=== PATIENT | male | born 1935 | race Caucasian/White ===

== ENCOUNTER 2017-04-12 17:59 | Inpatient (IN) | payer MEDICARE, BC, OTHER ==
[~2017-04-12] VITALS: Ht 177.8 cm; Wt 121.6 kg
[~2017-04-12 17:59] MED LIST: ALLEGRA ALLERG180 MG PO; ASPIR 8181 MG PO; BENTYL 10 MG CA10 M1 PO; BRILINTA90 MG PO; DICLOFENAC SODI75 MG PO; LANSOPRAZOLE30 MG PO; NITROGLYCERIN0.4 MG SUBLING; NORCO 5-325 TA1 EACH PO; PREVACID30 MG PO; PROVENTIL HFA6.7 G1 INH; SYMBICORT160 MCG/4. INH; TOPAMAX 25 MG T25 M1 PO; TOPROL XL25 MG PO; ZOCOR20 MG PO
[2017-04-12 19:50] LABS: ABSOLUTE BASOPHILS 0.1 thou/uL (0.0-0.2); ABSOLUTE LYMPHOCYTES 1.5 thou/uL (0.8-5.3); ABSOLUTE MONOCYTES 0.9 thou/uL (0.0-1.2); ABSOLUTE NEUTROPHILS 8.8 thou/uL (1.6-8.1); BASOPHILS 0.6 %; EOSINOPHILS 0.3 %; HEMATOCRIT 40.6 % (42.0-52.0); HEMOGLOBIN 13.3 gm/dL (14.0-18.0); LYMPHOCYTES 13.6 %; MCH 29.1 pg (26.0-34.0); MCHC 32.8 g/dL (28.0-37.0); MCV 88.8 fL (80.0-100.0); MONOCYTES 7.6 %; MPV 9.3 fl. (7.2-11.1); NUCLEATED RBCS 0 /100WBC; PLATELET COUNT* 186 thou/uL (150-400); POLYS 77.9 %; RBC 4.57 mil/uL (4.50-6.00); RDW-CV 14.9 % (10.5-14.5); WBC 11.3 thou/uL (4.0-11.0)
[2017-04-12 19:57] LABS: CREATININE 1.3 mg/dL (0.6-1.3); POTASSIUM 3.8 mmol/L (3.5-5.1)
[2017-04-12 20:00] VITALS: BP 135/83
[2017-04-12 20:01] LABS: TOTAL BILIRUBIN 0.3 mg/dL (<0.1-1.0); TOTAL PROTEIN 5.7 g/dL (6.4-8.2)
--- NOTE | 2017-04-12 21:37 | NUR ---
PATIENT ARRIVED TO UNIT AT SHIFT CHANGE 1919. PATIENT STABLE, ORIENT X4, BP 130/83(102) AFEBRILE. HAS INTERMITTENT PAIN OF [address] REHMAN IN ROOM SPEAKING WITH PT AND FAMILY. GI AND CARDIOLOGY HAVE BEEN CONSULTED. WILL CONTINUE TO MONITOR.
[2017-04-12 22:00] VITALS: BP 79/61
[2017-04-13] VITALS (9 sets, daily range): BP systolic 103–147; BP diastolic 54–88
[2017-04-13 03:12] LABS: ABSOLUTE BASOPHILS 0.1 thou/uL (0.0-0.2); ABSOLUTE LYMPHOCYTES 1.8 thou/uL (0.8-5.3); ABSOLUTE NEUTROPHILS 6.3 thou/uL (1.6-8.1); BASOPHILS 0.7 %; EOSINOPHILS 0.4 %; HEMATOCRIT 35.8 % (42.0-52.0); HEMOGLOBIN 11.7 gm/dL (14.0-18.0); LYMPHOCYTES 19.5 %; MCH 29.4 pg (26.0-34.0); MCHC 32.8 g/dL (28.0-37.0); MCV 89.6 fL (80.0-100.0); MONOCYTES 10.4 %; MPV 9.8 fl. (7.2-11.1); NUCLEATED RBCS 0 /100WBC; PLATELET COUNT* 160 thou/uL (150-400); RBC 3.99 mil/uL (4.50-6.00); WBC 9.2 thou/uL (4.0-11.0)
[2017-04-13 03:14] LABS: CALCIUM 7.9 mg/dL (8.5-10.1); CREATININE 1.2 mg/dL (0.6-1.3); POTASSIUM 4.3 mmol/L (3.5-5.1)
--- NOTE | 2017-04-13 08:07 | NUR ---
PATIENT PROGRESSING TOWARDS GOALS. HAS NO CURRENT CONCERNS AT THIS TIME. PT STATES HE FEELS GREAT NO LONGER HAS LOWER ABD PAIN. PT HAD LIQUID BM OF 300ML LIQUID BRIGHT RED BLOOD. DENIES HEADACHE, PAIN, N/V. HGB OF 10.7. GI AND CARDIOLOGY CONSULTED. PT IS HEMODYNAMICALLY TABLE NO ACUTE CHANGES OVER NIGHT. WILL CONTINUE TO MONITOR CLOSELY.
--- NOTE | 2017-04-13 10:47 | NUR ---
RECEIVED REPORT FROM UMESH OSPINA. ASSUMED CARE OF PT AT 1030. PT HAD BLODDY STOOL RIGHT NOW. HUMBERTO RED BLOOD. VITALS STABLE. WILL CONTINUE TO MONITOR.
--- NOTE | 2017-04-13 10:49 | NUR ---
CHART REVIEWED, SPOKE WITH PATIENT. PT LIVES WITH HIS , STATES HAS BEEN ACTIVE AND INDEP AT HOME. PT ADMITTED WITH GI BLEED, STATES ALTHO THIS IS NOT A NEW ISSUE FOR HIM, HE IS ANXIOUS TO FIND OUT WHAT THE CAUSE IS. EXPLAINED ROLE OF CASE MGT, WILL CONTINUE TO FOLLOW.
[2017-04-13 16:18] LABS: ABSOLUTE BASOPHILS 0.1 thou/uL (0.0-0.2); ABSOLUTE LYMPHOCYTES 1.6 thou/uL (0.8-5.3); ABSOLUTE MONOCYTES 1.2 thou/uL (0.0-1.2); ABSOLUTE NEUTROPHILS 11.5 thou/uL (1.6-8.1); BASOPHILS 0.6 %; EOSINOPHILS 0.1 %; HEMATOCRIT 31.3 % (42.0-52.0); HEMOGLOBIN 10.1 gm/dL (14.0-18.0); LYMPHOCYTES 11.1 %; MCH 28.8 pg (26.0-34.0); MCHC 32.3 g/dL (28.0-37.0); MCV 89.1 fL (80.0-100.0); MPV 9.5 fl. (7.2-11.1); NUCLEATED RBCS 0 /100WBC; PLATELET COUNT* 195 thou/uL (150-400); POLYS 80.2 %; RBC 3.52 mil/uL (4.50-6.00); RDW-CV 14.9 % (10.5-14.5); WBC 14.3 thou/uL (4.0-11.0)
--- NOTE | 2017-04-13 19:08 | NUR ---
TALKED WITH DR SILVERIO READ RESULTS OF GI BLEED STUDY AND CURRENT HGB.
--- NOTE | 2017-04-13 19:30 | NUR ---
ASSUMED CARE AT 1930, ASSESMENT CHARTED. PATIENT ALERT/ORIENTED X4, RESTING IN BED. PATIENT TURNING SELF IN BED FREQUENTLY. DENIES PAIN, NAUSEA, OR NEEDS. GIVEN DINNER TRAY, TOLERATING CLEAR LIQUID DIET WELL. VOIDING PER URINAL. SCD'S INTACT. BED ALARM ON. CALL LIGHT WITHIN REACH, ENCOURAGED TO CALL FOR NEEDS.
[2017-04-13 22:10] LABS: HEMATOCRIT 26.8 % (42.0-52.0); HEMOGLOBIN 8.8 gm/dL (14.0-18.0)
[2017-04-13] MEDS ORDERED: BRILINTA90 MG PO (22:28)
[2017-04-13] MEDS ORDERED: EFFIENT10 MG PO (22:28)
[2017-04-14] VITALS (17 sets, daily range): BP systolic 91–130; BP diastolic 37–89
--- NOTE | 2017-04-14 00:20 | NUR ---
0020: PATIENT PLACED ON BEDPAN, 250ML RED BLOODY LIQUID STOOL NOTED OUT. CONTINUES TO DENY PAIN OR NAUSEA. DR. SILVERIO PAGED X2 AT THAT TIME WITH RETURNED CALL AT 0200. ORDERS RECEIVED TO TYPE & SCREEN, REPEAT RBC TAGGED SCAN STAT, AND TO CHECK AN H&H. PATIENT UPDATED. 0245: JULISSA AT BEDSIDE, PATIENT TAKEN TO HI AT THIS TIME.
[2017-04-14 02:45] LABS: HEMATOCRIT 25.5 % (42.0-52.0); HEMOGLOBIN 8.3 gm/dL (14.0-18.0)
--- NOTE | 2017-04-14 02:54 | NUR ---
PATIENT IN NM FOR RBC TAGGED SCAN AT THIS TIME. STAFF AT SIDE. WILL MONITOR.
--- NOTE | 2017-04-14 03:15 | NUR ---
PATIENT RETURNED FROM CO, INCONTINENT OF SMALL RED BLOODY STOOL. EMILIANA-CARE GIVEN. HGB RESULTED AT 8.3. PATIENT UPDATED. AWAITING RESULTS OF CO TEST. BED ALARM ON. WILL MONITOR.
--- NOTE | 2017-04-14 07:30 | NUR ---
0730 ASSUMED CARE OF PT. PLEASE SEE DOCUMENTED ASSESSMENT. PT IS AXOX4. 02 AT 2L PER NC. LAST HGB AT 8.3. DENIES PAIN. AWAITING NUCLEAR MED RESULTS. GOALS THIS SHIFT ARE: MAINTAIN HEMODYNAMIC STABILITY, MONITOR BLEEDING, TRANSFUSE IF NECESSARY, AND POSSIBLY TX OUT TO TELE.
--- NOTE | 2017-04-14 07:53 | NUR ---
PATIENT RESTING IN BED. REPORT GIVEN TO ONCOMING NURSE. WILL MONITOR.
--- NOTE | 2017-04-14 10:00 | NUR ---
DR. SILVERIO HERE ON THE UNIT. UPDATED ON PT CARE. NEW ORDERS RCV'D. INFORMED DR. SILVERIO OF PT'S 300 ML REDDISH BROWN LIQUID STOOL. AWAITING LAB FOR 1000 H/H.
[2017-04-14 11:10] LABS: HEMATOCRIT 23.6 % (42.0-52.0); HEMOGLOBIN 7.9 gm/dL (14.0-18.0)
--- NOTE | 2017-04-14 11:32 | NUR ---
UPDATED DR. SILVERIO VIA TELEPHONE. NEW ORDERS RCV'D. PT TO START BOWEL PREP FOR 0930 COLONOSCOPY TOMORROW 04/15/17.
--- NOTE | 2017-04-14 13:28 | CON ---
[address] [address] CONSULTATION Name: MELQUIADES SERVIN Room: [address] IN M.R.#: [id number] Admission: 04/12/17 Attend Phys: Jhonny Manzo MD Discharge: Date of : 37 Report #: [id number] THIS REPORT FOR: //name// CC: Jhonny Ivey DATE OF SERVICE: 04/13/2017 HISTORY OF PRESENT ILLNESS: The patient is an 81-year-old white male who I was asked to see in the hospital today because of his history of coronary artery disease. The patient presented last July with chest pain. He had a stress test that was abnormal. He saw my partner, Dr. Frias. He had a heart catheterization here at [facility] by his radial artery. He was found to have 2 sequential stenoses in the right coronary artery. He then had a long drug-eluting stent placed in the right coronary artery. He had normal left ventricular function. He was discharged on Brilinta. He could not tolerate her Brilinta, so was actually switched to Effient. He returned to see Dr. Frias in the Cardiology clinic on 03/29/2017. The patient is not very active because of his age and large size. He is 5 feet 9 inches and weighs 266 pounds. He has had only rare episodes of chest pain. He does get short of breath with exertion. He has had no palpitation or syncope. He has previous history of GI bleeding; he has had a previous upper GI as well as a colonoscopy that showed colon polyps. He was doing well until last couple of days he has had bright red blood per rectum. He finally went to the Emergency Room in ____. He was noted to be anemic and given a transfusion. He was then transferred to [facility] yesterday. He is now undergoing a GI evaluation. He denied any vomiting, abdominal pain. PAST MEDICAL HISTORY: Otherwise significant for knee surgery, back surgery, hypertension, hyperlipidemia. CURRENT MEDICATIONS: Include albuterol inhaler for asthma, Prevacid, metoprolol, Effient, simvastatin, Topamax for previous TIA and aspirin a day. ALLERGIES: He has no known drug allergies. FAMILY HISTORY: Negative for heart disease. SOCIAL HISTORY: He is . He and his live in [place], [place]. 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 Quit smoking years ago. No alcohol abuse. REVIEW OF SYSTEMS: He has had no history of liver disease. No cancer. No psychiatric illness[place] [address] CONSULTATION Name: MELQUIADES SERVIN Room: [address] IN M.R.#: [id number] Admission: 04/12/17 Attend Phys: Jhonny Manzo MD Discharge: Date of : 37 Report #: [id number] PHYSICAL EXAMINATION: GENERAL: Revealed an elderly male, lying in bed. VITAL SIGNS: Blood pressure 130/80, pulse is 90, he is afebrile. HEENT: He is anicteric. Conjunctivae pink. Mucous members moist. NECK: Veins nondistended. No carotid bruits. Neck is supple. CHEST: Clear to auscultation. CARDIOVASCULAR: Regular rate and rhythm. ABDOMEN: Obese, soft, nontender. EXTREMITIES: Had no edema. Dorsalis pedis pulse 1+ bilaterally. SKIN: Warm and dry. NEUROLOGIC: Nonfocal. LYMPH: No adenopathy. MUSCULOSKELETAL: No joint effusion. On the monitor, he appears to be in a sinus rhythm, occasional PVC. His workup so far, he had lab work here, sodium 149, creatinine 1.2, glucose 121. Cholesterol 131, triglyceride 105, HDL 43, LDL 67. White blood cell count 9.2, hemoglobin 11.7. IMPRESSION AND RECOMMENDATIONS: 1. Lower gastrointestinal bleed. At this time, I would stop the aspirin and Effient. The patient is stable from cardiac standpoint for GI workup. 2. Coronary artery stenting. The patient had a long drug-eluting stent placed in the right coronary artery in 07/2016. Since it has now been more than 6 months following placement of drug-eluting stent, I think it is reasonable to discontinue the Effient. Since his bleeding, I would stop the aspirin at this time. However, as soon as it is felt to be safe from a GI standpoint, I would resume aspirin 81 mg a day. 3. Hypertension. The patient has been on a beta justin. 4. Hyperlipidemia. The patient is on a statin drug. 5. Asthma. The patient followed by the Pulmonary Service. <ELECTRONICALLY SIGNED> By: Miguel Miguel MD, FACC 04/14/17 1328 [id number] 2023David José Miguel MD, FACC /nt
[2017-04-14 17:26] LABS: HEMATOCRIT 24.6 % (42.0-52.0); HEMOGLOBIN 8.1 gm/dL (14.0-18.0)
--- NOTE | 2017-04-14 18:07 | NUR ---
OUTCOME SUMMARY: PROGRESSING TOWARDS GOALS. TO HAVE COLONOSCOPY AT 0930 IN AM. TOLERATING GOLYTELY BOWEL PREP FAIR, TREATED W/PRN ZOFRAN FOR INTERMITTENT NAUSEA W/PARTIAL RELIEF. MULTIPLE STOOLS TODAY, LATEST STOOL DARK BROWN. HGB TRENDING UPWARD. ROOM AIR W/SATS WNL. NPO AFTER MIDNIGHT. NUC MED RE-SCAN SHOWED NO ACTIVE BLEEDING, POSSIBLE COLITIS. PT STARTED ON CIPRO/FLAGYL PO. OVERALL PROGNOSIS: GOOD.
[2017-04-14 22:18] LABS: HEMATOCRIT 23.8 % (42.0-52.0); HEMOGLOBIN 7.9 gm/dL (14.0-18.0)
[2017-04-15] VITALS (15 sets, daily range): BP systolic 89–138; BP diastolic 41–67
[2017-04-15 04:41] LABS: HEMATOCRIT 20.8 % (42.0-52.0)
--- NOTE | 2017-04-15 05:32 | NUR ---
PT. TO HAVE COLONOSCOPY TODAY. HGB 7.0. PT. UP TO BEDSIDE COMMODE X4, LIQUID BM'S. WILL CONTINUE TO MONITOR.
--- NOTE | 2017-04-15 09:29 | NUR ---
PATIENT CARE ASSUMED AT 0700. PATIENT AOX4. PATIENT BOWEL PREP COMPLETED ON NOC. PER STEAMBOAT INSPECTOR AND PATIENT, BOWELS CLEAR AFTER MULTIPLE TRANSFERS TO [place] [facility] [place]. MORNING HGB 7.0. ORDERS TO TRANSFUSE IS HGB BELOW 7.5. ONE UNIT TRANFUSING NOW, ONE MORE AFTER THAT. PATIENT TO GO TO COLONOSCOPY THIS AM. NPO SINCE MIDNIGHT WITH EXCEPTION OF NECESSARY MEDS. PATIENT'S AT BEDSIDE. UPDATED ON PLAN OF CARE. DENY FURTHER NEEDS AT THIS TIME.
--- NOTE | 2017-04-15 10:03 | NUR ---
PATIENT LEFT THE UNIT FOR COLONOSCOPY AT 1000.
--- NOTE | 2017-04-15 10:41 | NUR ---
PATIENT RETURNED FROM COLONOSCOPY AT 1035. EGD WAS ALSO COMPLETED AT THIS TIME. PATIENT HAS DIVETICULOSIS, AND SMALL HIATAL HERNIA, BUT NO FURTHER FINDINGS. BLOOD STILL INFUSING AT THIS TIME, ALMOST COMPLETELY INFUSED. OKAY TO DOWNGRADE TO TELEMETRY STATUS AND EAT PER DR SILVERIO.
[2017-04-15 12:07] LABS: ALBUMIN 2.5 g/dL (3.4-5.0); CALCIUM 7.4 mg/dL (8.5-10.1); CREATININE 1.1 mg/dL (0.6-1.3); POTASSIUM 3.1 mmol/L (3.5-5.1); TOTAL BILIRUBIN 0.1 mg/dL (<0.1-1.0); TOTAL PROTEIN 4.3 g/dL (6.4-8.2)
[2017-04-15 14:05] LABS: URINE BILIRUBIN NEGATIVE (Negative); URINE BLOOD NEGATIVE (Negative); URINE CLARITY CLEAR; URINE COLOR YELLOW; URINE GLUCOSE-RANDOM NEGATIVE (Negative); URINE KETONES NEGATIVE (Negative); URINE LEUKOCYTES NEGATIVE (Negative); URINE NITRITE NEGATIVE (Negative); URINE PROTEIN NEGATIVE (Negative); URINE SPECIFIC GRAVITY >= 1.030 (1.005-1.030); URINE UROBILINOGEN 0.2 E.U./dl (0.2-1.0)
[2017-04-15 16:21] LABS: HEMOGLOBIN 8.6 gm/dL (14.0-18.0)
[2017-04-15 16:33] LABS: INR 1.1; PROTIME 10.8 Seconds (9.20-11.50)
--- NOTE | 2017-04-15 17:27 | NUR ---
PATIENT PROGRESSING TOWARDS GOALS. HAS DENIED FURTHER NEEDS SINCE RETURNING FROM COLONOSCOPY THIS AM. POTASSIUM REPLACED AFTER AFTERNOON RECHECK. LABS TO BE COMPLETED IN AM. HEMATOLOGY CONSULTED CALLED AND DR CARTWRIGHT CALLED AND ORDERED NEW LABS TO ASSESS FOR POSSIBLE BLEEDING DISORDER PER DR GARCIA. PATIENT NOW ON REGULAR DIET, TOLERATING WELL. 2 UNITS PRBCS INFUSED THIS AM, 8.6 HGB ON REDRAW. DOWNGRADED TO TELEMETRY STATUS.
[2017-04-16] VITALS: BP 102/42
[2017-04-16 04:00] VITALS: BP 103/45
[2017-04-16 05:21] LABS: HEMATOCRIT 23.4 % (42.0-52.0); MCH 30.6 pg (26.0-34.0); MCHC 34.4 g/dL (28.0-37.0); MPV 8.8 fl. (7.2-11.1); RBC 2.62 mil/uL (4.50-6.00); RDW-CV 14.6 % (10.5-14.5); WBC 7.8 thou/uL (4.0-11.0)
[2017-04-16 05:39] LABS: CALCIUM 7.6 mg/dL (8.5-10.1); CREATININE 1.2 mg/dL (0.6-1.3); MAGNESIUM 1.8 mg/dL (1.8-2.4)
--- NOTE | 2017-04-16 06:30 | NUR ---
PROGRESSING TOWARDS GOALS, TYLENOL X1 AND ICE PACKS WITH HAND ELEVATION HELPFUL FOR PAIN MANAGEMENT TO RIGHT HAND PER PT VERBALIZED, NSR TRACING METHODS ENGINEER, RA, DENIES SOA, AWAKE, ALERT AND CONVERSATIVE THIS AM, USING URINAL TO VOID, NO S/S BLEEDING NOTED.
[2017-04-16 08:00] VITALS: BP 107/45
--- NOTE | 2017-04-16 08:45 | NUR ---
ASSUMED CARE OF PATIENT AFTER RECEIVING BEDSIDE REPORT. ASSESSMENT COMPLETED, VSS. PATIENT DENIES COMPLAINTS AND CONCERNS. PATIENT REPORTS IMPROVEMENT IN ROM AND PAIN IN LEFT HAND. PATIENT DENIES OTHER PAIN. PATIENT HOPEFUL TO DISCHARGE HOME TODAY. BISQUE BRUSHER IN PLACE, SINUS RHYTHM NOTED. CALL LIGHT WITHIN REACH, USE REINFORCED. WILL CONTINUE TO MONITOR.
[2017-04-16] MEDS ORDERED: ASPIR 8181 MG PO (12:20)
[2017-04-16] MEDS ORDERED: CIPRO500 MG PO (12:33)
[2017-04-16] MEDS ORDERED: FLAGYL500 MG PO (12:36)
[2017-04-16 12:39] VITALS: BP 107/45
[2017-04-16 18:10] LABS: IgA 77 mg/dL (61-437); IgG 329 mg/dL (700-1600)
[2017-04-16 19:11] LABS: IgM 15 mg/dL (15-143)
[2017-04-18 18:11] LABS: ANA INTERPRETATION Negative (())
--- NOTE | 2017-05-10 14:50 | CON ---
[address] [address] CONSULTATION Name: MELQUIADES SERVIN Room: [address] IN M.R.#: [id number] Admission: 04/12/17 Attend Phys: Jhonny Manzo MD Discharge: 04/16/17 Date of : 37 Report #: [id number] THIS REPORT FOR: //name// CC: Jhonny Ivey DATE OF SERVICE: 04/13/2017 ADDENDUM TO CONSULTATION REASON FOR CONSULTATION: GI bleed. HISTORY OF PRESENT ILLNESS: This is an 81-year-old male with history of recurrent GI bleeds. He believes he had a negative upper endoscopy in the last 6 months and a colonoscopy about 3 years ago. He has had 3 significant GI bleeds in the past without any obvious source of GI bleeding. The patient currently denies any abdominal pain. Complains of mild nausea and denies any vomiting, diarrhea or constipation. He has two bloody stools, which were small today. PAST MEDICAL HISTORY: Significant for history of coronary artery disease, history of chronic anticoagulation therapy, Effient, GERD, chronic pain medication, asthma and hyperlipidemia. ALLERGIES: Please refer to hospital MAR. MEDICATIONS: Please refer to hospital MAR. SOCIAL HISTORY: The patient lives at home, is . Denies tobacco or alcohol use. FAMILY HISTORY: Noncontributory. LABORATORY DATA: Reveal WBC of 9.2 and hemoglobin 11.7 with platelet of 160. Sodium is 149, potassium is 4.3, BUN is 32 and creatinine 1.2 with normal liver enzymes and albumin of 3.0. ASSESSMENT AND PLAN: The patient with a history of gastrointestinal bleeds in the past with no obvious source of bleeding. Has had a recent upper endoscopy 6 months ago and a colonoscopy 3-4 years ago. He is known to have diverticular bleed. I suspect this may be a diverticular bleed but given his history, I would obtain RBC tagged scan first. Based on finding, we will take action. Meanwhile, we will go ahead and put him on clear liquids and give him Reglan [address] [place] [address] CONSULTATION Name: MELQUIADES SERVIN Room: [address] IN ..#: [id number] Admission: 04/12/17 Attend Phys: Jhonny Manzo MD Discharge: 04/16/17 Date of : 36 Report #: [id number] mg q. 6 hours for nausea. We will monitor his CBC and if it drops below 8, we will transfuse him. <ELECTRONICALLY SIGNED> By: Chato Morrow MD 05/10/17 1450 [id number] 2027Chato Morrow MD /nt
== END 2017-04-16 13:15 | disposition home or self-care (01) | DRG 371 ==
LOC: M.ICU 17:59 → M.2W 04-15 20:09
PROVIDERS: Family Medicine; Internal Medicine; Internal Medicine Gastroenterology; Internal Medicine Hematology & Oncology; ADMIT Internal Medicine
PROC: 0DJD8ZZ Inspection of Lower Intestinal Tract, Via Natural or Artificial Opening Endoscopic (ICD-10-PCS; principal; 2017-04-15)
PROC: 0DJ08ZZ Inspection of Upper Intestinal Tract, Via Natural or Artificial Opening Endoscopic (ICD-10-PCS; principal; 2017-04-15)
PROC: 30233N1 Transfusion of Nonautologous Red Blood Cells into Peripheral Vein, Percutaneous Approach (ICD-10-PCS; principal; 2017-04-15)
DX: A04.9 Bacterial intestinal infection, unspecified (principal); K57.31 Diverticulosis of large intestine without perforation or abscess with bleeding; D62 Acute posthemorrhagic anemia; R65.10 Systemic inflammatory response syndrome (SIRS) of non-infectious origin without acute organ dysfunction; I25.10 Atherosclerotic heart disease of native coronary artery without angina pectoris; I10 Essential (primary) hypertension; E78.5 Hyperlipidemia, unspecified; K21.9 Gastro-esophageal reflux disease without esophagitis; J45.909 Unspecified asthma, uncomplicated; G89.29 Other chronic pain; K58.9 Irritable bowel syndrome, unspecified; Z96.653 Presence of artificial knee joint, bilateral; F17.210 Nicotine dependence, cigarettes, uncomplicated; K44.9 Diaphragmatic hernia without obstruction or gangrene; K64.8 Other hemorrhoids; I95.9 Hypotension, unspecified; Z86.73 Personal history of transient ischemic attack (TIA), and cerebral infarction without residual deficits; Z95.5 Presence of coronary angioplasty implant and graft; Z79.01 Long term (current) use of anticoagulants; Z79.899 Other long term (current) drug therapy; Z79.82 Long term (current) use of aspirin; Z90.49 Acquired absence of other specified parts of digestive tract